=== PATIENT | female | born 2000 | race American Indian/Alaskan Native ===

== ENCOUNTER 2018-10-05 16:45 | Emergency (ER) | payer OTHER ==
[2018-10-05 17:04] VITALS: BMI 20.2
[2018-10-05 17:07] VITALS: TEMP 98.8
[2018-10-05 17:08] VITALS: O2SAT 100
--- NOTE | 2018-10-05 17:23 | ED PDOC ---
Arrival/HPI - General Chief Complaint: Abnormal Skin Integrity Historian: Patient - History of Present Illness Narrative History of Present Illness (Text): 10/05/18 17:19 18yo female with no pmhx who present with complaint of abscess to her left buttocks x 2weeks. States she has been applying warm compress to area. Denies fever, chills, nausea, vomiting, any other complaint. Past Medical History - Provider Review Nursing Documentation Reviewed: Yes - Infectious Disease Hx of Infectious Diseases: None - Psychiatric Hx Substance Use: No - Anesthesia Hx Anesthesia: No Family/Social History - Physician Review Nursing Documentation Reviewed: Yes Family/Social History: Unknown Family HX Smoking Status: Never Smoked Hx Alcohol Use: No Hx Substance Use: No Allergies/Home Meds Allergies/Adverse Reactions: Allergies No Known Allergies Allergy (Verified 10/05/18 17:04) Review of Systems - Physician Review All systems were reviewed & negative as marked: Yes - Review of Systems Constitutional: Normal Eyes: Normal ENT: Normal Respiratory: Normal Cardiovascular: Normal Gastrointestinal: Normal Genitourinary Female: Normal Musculoskeletal: Normal Skin: Abscess (LEft buttocks) Neurological: Normal Endocrine: Normal Hemo/Lymphatic: Normal Psychiatric: Normal Physical Exam Vital Signs Reviewed: Yes Vital Signs Temp Pulse Resp BP Pulse Ox 10/05/18 17:07 98.8 F 91 H 18 132/81 100 Temperature: Afebrile Blood Pressure: Normal Pulse: Regular Respiratory Rate: Normal Appearance: Positive for: Well-Appearing, Non-Toxic, Comfortable Pain Distress: None Mental Status: Positive for: Alert and Oriented X 3 - Systems Exam Head: Present: Atraumatic, Normocephalic Pupils: Present: PERRL Extroacular Muscles: Present: EOMI Conjunctiva: Present: Normal Mouth: Present: Moist Mucous Membranes Neck: Present: Normal Range of Motion Respiratory/Chest: Present: Clear to Auscultation, Good Air Exchange. No: Respiratory Distress, Accessory Muscle Use Cardiovascular: Present: Regular Rate and Rhythm, Normal S1, S2. No: Murmurs Abdomen: No: Tenderness, Distention, Peritoneal Signs Back: Present: Normal Inspection Upper Extremity: Present: Normal Inspection. No: Cyanosis, Edema Lower Extremity: Present: Normal Inspection. No: Edema Neurological: Present: GCS=15, CN II-XII Intact, Speech Normal Skin: Present: Warm, Dry, Normal Color, Abscess (Approximately 6 x 7cm abscess to left buttock into the cleft). No: Rashes Psychiatric: Present: Alert, Oriented x 3, Normal Insight, Normal Concentration Disposition/Present on Arrival - Present on Arrival Any Indicators Present on Arrival: No History of DVT/PE: No History of Uncontrolled Diabetes: No Urinary Catheter: No History of Decub. Ulcer: No History Surgical Site Infection Following: None - Disposition Have Diagnosis and Disposition been Completed?: Yes Diagnosis: Abscess Disposition: HOME/ ROUTINE Disposition Time: 19:00 Patient Plan: Discharge Condition: STABLE Discharge Instructions (ExitCare): Abscess Incision and Drainage Additional Instructions: Return to ED in 2days for packing removal Follow up with your Doctor Return to ED for any new or worsening symptoms Prescriptions: Cephalexin [cephalexin] 500 mg PO TID #21 cap Sulfamethoxazole/Trimethoprim [Bactrim DS 800 mg-160 mg] 1 tab PO BID #14 tab RX: traMADol [Ultram] 50 mg PO Q6 #9 tab Referrals: Chelita Diane MD [Medical Doctor] - Follow up with primary Forms: [employer] (Filipino) - Incision & Drainage Of Abscess Anesthesia: Lidocaine 1% (16ml), With Epi Prep Used: Betadine Procedure: Incised W/Scalpel Blade#: (11), Drained Pus, Probed To Break Up Loculations, Packed W/Gauze, Cultures Obtained And Sent To Lab
[2018-10-05] MEDS ORDERED: Oxycodone/Acetaminophen 5/325 mg Tab PO STA (17:24)
[2018-10-05] MEDS ORDERED: Lidocaine 1% w Epi 1:100,000 Inj IJ STA (17:25)
[2018-10-05] MEDS ORDERED: Tmp-Smz 800 mg-160 mg DS Tab PO STA (17:26)
[2018-10-05 19:27] VITALS: BP 130/72; PULSE 77; RESP 16
== END 2018-10-05 19:25 | disposition home or self-care (01) ==
LOC: ED 16:45
DX: L02.31 Cutaneous abscess of buttock (principal)

== ENCOUNTER 2018-10-08 08:22 | Emergency (ER) | payer OTHER ==
[2018-10-08 08:22] VITALS: BMI 20.2
[2018-10-08 08:35] VITALS: BP 118/75; PULSE 87; RESP 18; TEMP 98.2; O2SAT 100
--- NOTE | 2018-10-08 08:52 | ED PDOC ---
Arrival/HPI - General Chief Complaint: Abnormal Skin Integrity Time Seen by Provider: 10/08/18 08:41 Historian: Patient - History of Present Illness Time/Duration: Other (3 days) Symptom Course: Improving Severity Level: Mild Associated Symptoms (Text): 10/08/18 08:49 Patient had a left buttocks abscess incision and drainage 3 days ago in the emergency department. She presents for packing removal. She reports she is feeling much better. She is taking her antibiotics. Past Medical History - Infectious Disease Hx of Infectious Diseases: None - Psychiatric Hx Substance Use: No - Anesthesia Hx Anesthesia: No Family/Social History - Physician Review Nursing Documentation Reviewed: Yes Family/Social History: Unknown Family HX Smoking Status: Never Smoked Hx Alcohol Use: No Hx Substance Use: No Allergies/Home Meds Allergies/Adverse Reactions: Allergies No Known Allergies Allergy (Verified 10/08/18 08:29) Review of Systems - Physician Review All systems were reviewed & negative as marked: Yes Physical Exam Vital Signs Temp Pulse Resp BP Pulse Ox 10/08/18 08:22 98.2 F 87 18 118/75 100 Temperature: Afebrile Blood Pressure: Normal Pulse: Regular Respiratory Rate: Normal Appearance: Positive for: Well-Appearing, Non-Toxic, Comfortable Pain Distress: None Mental Status: Positive for: Alert and Oriented X 3 - Systems Exam Skin: Present: Warm, Dry, Normal Color, Other (Left buttocks abscess packing removed. Still draining purulent material. Surrounding induration. No erythema. No warmth. Minimal tenderness.). No: Rashes Medical Decision Making ED Course and Treatment: 10/08/18 08:50 Packing removal in the emergency department. Sterile dressing applied. Finish antibiotics. Disposition/Present on Arrival - Present on Arrival Any Indicators Present on Arrival: No History of DVT/PE: No History of Uncontrolled Diabetes: No Urinary Catheter: No History of Decub. Ulcer: No History Surgical Site Infection Following: None - Disposition Have Diagnosis and Disposition been Completed?: Yes Diagnosis: Abscess packing removal Disposition: HOME/ ROUTINE Disposition Time: 08:51 Patient Plan: Discharge Condition: IMPROVED Discharge Instructions (ExitCare): Debridement of a Wound or Burn Additional Instructions: Finish antibiotics. Follow-up with PMD. Follow up in ER as needed.
== END 2018-10-08 09:09 | disposition home or self-care (01) ==
LOC: ED 08:22
DX: L02.31 Cutaneous abscess of buttock (principal); Z48.00 Encounter for change or removal of nonsurgical wound dressing